=== PATIENT | male | born 1945 | race Caucasian/White ===

== ENCOUNTER 2024-08-03 10:44 | Emergency (ER) | payer MEDICARE, SELFPAY ==
[2024-08-03 10:47] VITALS: BP 126/69; PULSE 67; RESP 18; TEMP 37; O2SAT 96; BMI 26.4
--- NOTE | 2024-08-03 10:59 | ED.GENADULT ---
HPI - General Adult General Time Seen by Provider: 10:59 Date Seen: 08/03/24 Chief complaint: Skin/Abscess/Foreign Body Stated complaint: Rash Time Seen by Provider: 08/03/24 10:45 Source: patient and RN notes reviewed Mode of arrival: ambulatory Limitations: no limitations History of Present Illness HPI narrative: This 78-year-old male is coming in with a rash that seems to be spreading. He noticed it on Saturday, he was up into lose visiting relatives. He did walk back on a trail to wear bees were being kept. He does not recollect being stung by any insects or coming in contact with any plants. He believes he was wearing a long sleeve shirt. Rash was noticed on Saturday. We discussed the possibility of contact prior to that time since he started noticing the rash on Saturday. It started on his right inner arm, there is a bit on the juxtaposed right chest wall, has a few lesions on his legs and couple spots on both forearms. He has been using Claritin daily, has helped with the itching. He has had a remote history of poison valentine but absolutely nothing recent, does not believe he came in contact with any plants at the time. He has not noted any fevers. Rash is not really painful. He is not on any chronic medications. Related Data Previous Rx's ?Medication ?Instructions ?Recorded hydrocortisone 2.5 % topical cream 1 applic topical TID PRN 7 days 08/03/24 #30 grams prednisone 20 mg tablet 20 mg PO BID #10 tabs 08/03/24 Allergies Allergy/AdvReac Type Severity Reaction Status Date / Time No Known Drug Allergies Allergy Verified 08/03/24 10:55 Review of Systems Narrative: As per HPI. Exam Const: Vital Signs, click to edit/add: Vital Signs - 24 hr 08/03/24 10:47 Temperature 98.6 F Pulse Rate [Left P ulse Oximeter] 67 Respiratory Rate 18 Blood Pressure [Le ft Upper Arm] 126/69 Pulse Oximetry 96 Oxygen Delivery Me thod Room Air 78-year-old male is alert, interactive, no apparent distress. Appears very healthy. Skin has mild griffin nature, he has no facial rash, sclera clear, extraocular muscles intact, able to speak in complete sentences. On his right inner upper forearm with a little extension down laterally there is a plaque of baseline erythema with some thickening of the skin and areas of blistering, looks to be more of a contact dermatitis. Juxtaposed on his right chest wall is an area of erythema. On his forearms he has some smaller spots of erythema with some areas having little vesicular nature. He has a few spots on his lower legs and medial thighs. CV regular rate and rhythm, no murmur. Breathing easily on room air, lungs are clear, no tachypnea. Documenting provider has reviewed patient's vital signs: yes Course Vital Signs Vital signs: Initial Vital Signs Temperature 98.6 F 08/03/24 10:47 Temperature Source Temporal Artery Scan 08/03/24 10:47 Pulse Rate 67 08/03/24 10:47 Pulse Rhythm Regular 08/03/24 10:47 Respiratory Rate 18 08/03/24 10:47 Blood Pressure 126/69 08/03/24 10:47 Blood Pressure Mean 88 08/03/24 10:47 Blood Pressure Position Sitting 08/03/24 10:47 Pulse Oximetry 96 08/03/24 10:47 Oxygen Delivery Method Room Air 08/03/24 10:47 Vital Signs Temperature 98.6 F 08/03/24 10:47 Pulse Rate 67 08/03/24 10:47 Respiratory Rate 18 08/03/24 10:47 Blood Pressure 126/69 08/03/24 10:47 Pulse Oximetry 96 08/03/24 10:47 Oxygen Delivery Method Room Air 08/03/24 10:47 Temperature 98.6 F 08/03/24 10:47 Pulse Rate 67 08/03/24 10:47 Respiratory Rate 18 08/03/24 10:47 Blood Pressure 126/69 08/03/24 10:47 Pulse Oximetry 96 08/03/24 10:47 Oxygen Delivery Method Room Air 08/03/24 10:47 Medical Decision Making MDM Narrative Medical decision making narrative: Reviewed with patient that this really has appearance of a contact dermatitis. Given the distribution, this would not likely be a shingles rash, would anticipate if this patient had disseminated shingles he would definitely be ill and he clinically is not. This rash really supports a contact dermatitis. He is not aware of coming in contact with anything like poison valentine, poison oak or while pr snap. We did discuss that susceptible patient's really do not require a significant bolus of contact with the chemicals from these plants. It is possible that he could have had this happened while he was outside into loose on Saturday or perhaps at a different boy ate prior to that. We will try steroids, he can continue with Claritin twice a day to control the itching as needed. He stated the bottle reports that he can take it once a day, reviewed with him under medical treatment, we often will have patient's take it twice a day if needed. Critical Care Time Critical Care Time Critical Care Time: No Discharge Plan Discharge Clinical Impression: Rash Patient Disposition: Home, Self-Care Condition: Stable Instructions: Contact Dermatitis (ED) Additional Instructions: This rash clinically appears to be a contact dermatitis. We will have you try topical and oral steroids. Recommend taking prednisone with food to help protect your stomach. If the rash is not improving over the next week, worsens during the treatment or if it comes back after treatment, will need to be re-evaluated in may need to see Dermatology. Can continue to take the Claritin once to twice a day as needed to control itching. Activity Level: Activity as Tolerated Prescriptions: New prednisone 20 mg tablet 20 mg PO BID Qty: 10 0RF hydrocortisone 2.5 % cream 1 applic topical TID PRN7 Days Qty: 30 0RF Stand Alone Forms: [employer] Info Instructions
--- OUTSIDE RECORDS SUMMARY | 2024-08-03 11:24 | XMS_ITS | Referral Summary ---
Author Organization [place] Address [address] [place] [address] Care Team Providers Care Salesperson [employer] Furnishings Name Role Phone Anthony Garnica MD Primary Care Provider [phone] [facility], [place] [facility] Unavailable [phone] Allergies Active Allergy Reactions Criticality Noted Date Comments Amiodarone Other (See Comments) 06/05/2016 Photosensitivity, low appetite, didn't feel Warfarin Swelling 03/13/2023 Medications Medication Sig Dispensed Refills Start Date End Date Status STATIN NOT PRESCRIBED (INTENTIONAL) Please choose reason not prescribed from choices below. Active STATIN NOT PRESCRIBED (INTENTIONAL) Please choose reason not prescribed from choices below. 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 Pure hypercholesterolemia 08/15/2017 Resolved Problems Problem Noted Date Diagnosed Date Resolved Date Primary osteoarthritis of right hip 05/31/2022 07/05/2022 [facility] 05/14/2022 05/18/2024 Lumbago 06/20/2018 08/27/2018 Hip pain, right 06/20/2018 07/05/2022 Cardiomyopathy 04/20/2015 04/20/2021 Persistent atrial fibrillation 12/21/2014 04/20/2021 Immunizations Name Administration Dates Next Due DT (PEDS <7y) 02/15/1983 TD,PF 7+ (Tenivac) 12/02/1996 TDAP Vaccine (Adacel) 07/21/2019,10/23/2017,12/2006 Td (Adult), Adsorbed 09/02/2007 Social History Tobacco Use Types Packs/Day Years Used Date Smoking Tobacco: Never Smokeless Tobacco: Never Alcohol Use Standard Drinks/Week Comments Yes 4 (1 standard drink = 0.6 oz pur e alcohol) Social Connection and Isolat ion Panel [NHANES] Answer Date Recorded In a typical week, how many times do you talk on the phone with family, friends, or neighbors? Three times a week 01/31/2022 How often do you get togethe r with friends or relatives? More than three times a week 01/31/2022 How often do you attend [facility] or sabianist services? More than 4 times per year 01/31/2022 Do you belong to any clubs o r organizations such as oriental orthodox groups, unions, fraternal or athletic groups, or school groups? Yes 01/31/2022 Attends Club or Organization Meetings Not on channing e 01/31/2022 Are you , , di vorced, , never , or living with a partner? 01/31/2022 AUDIT-C Answer Date Recorded Q1: How often do you have a drink containing alc ohol? 2-3 times a week 01/31/2022 Q2: How many drinks containi ng alcohol do you have on a typical day when you are drinking? 1 or 2 01/31/2022 Q3: How often do you have si x or more drinks on one occasion? Never 01/31/2022 Overall Financial Resource Strain (CARDIA) Answe r Date Recorded How hard is it for you to pa y for the very basics like food, housing, medical care, and heating? Not hard at all 01/31/2022 PHQ-2 Answer Date Recorded PHQ-2 Score 0 01/24/2024 [facility] - Occupational Stress Questionnaire Answer Date Recorded Do you feel stress - tense, restless, nervous, or anxious, or unable to sleep at night because your mind is troubled all the time - these days? Not at all 01/31/2022 Exercise Vital Sign Answer Date Recorde d On average, how many days pe r week do you engage in moderate to strenuous exercise (like a brisk walk)? 4 days 01/31/2022 On average, how many minutes do you engage in exercise at this level? 20 min 01/31/2022 Hunger Vital Sign Answer Date Recorded Within the past 12 months, y ou worried that your food would run out before you got the money to buy more. Never true 02/01/20 22 Within the past 12 months, t he food you bought just didn't last and you didn't have money to get more. Never true 01/31/2022 PRAPARE - Transportation Answer Date Re corded In the past 12 months, has l ack of transportation kept you from medical appointments or from getting medications? No 01/2022 In the past 12 months, has l ack of transportation kept you from meetings, work, or from getting things needed for daily living? No 01/31/2022 Housing Stability Vital Sign Answer Emmanuel e Recorded In the last 12 months, was t here a time when you were not able to pay the mortgage or rent on time? No 01/31/2022 In the last 12 months, how many places have you lived? 1 01/31/2022 In the last 12 months, was t here a time when you did not have a steady place to sleep or slept in a jail (including now)? No 01/31/2022 Adolescent Education Answer Date Record ed Getting School Help Needed Not on file 09/07 Sex and Gender Information Value Date Recorded Sex Assigned at Not on file Gender Identity Not on file Sexual Orientation Not on file Last Filed Vital Signs Vital Sign Reading Time Taken Comments Blood Pressure 110/72 01/24/2024 11:17 AM FRAME BENDER Pulse 65 01/24/2024 11:17 AM FRAME BENDER Temperature 36.7 ??C (98 ??F) 01/24/2024 11:17 AM FRAME BENDER Respiratory Rate 20 01/24/2024 11:17 AM FRAME BENDER Oxygen Saturation 98% 01/24/2024 11:17 AM FRAME BENDER Inhaled Oxygen Concentration - - Weight 90.7 kg (200 lb) 01/24/2024 11:17 AM FRAME BENDER Height 184.2 cm (6' 0.5) 01/24/2024 11:17 AM CS T Body Mass Index 26.75 01/24/2024 11:17 AM FRAME BENDER Plan of Treatment Not on file Procedures Procedure Name Priority Date/Time Associated Diagnosis Comments BASIC METABOLIC PANEL (BFP) Routine 01/24/2024 2:24 PM FRAME BENDER Diabetes mellitus screening LIPID PANEL (BFP) Routine 01/24/2024 2:2 3 PM FRAME BENDER Pure hypercholesterolemia COLOGUARD([employer]) Routine 03/28/2023 7:15 AM CDT Colon cancer screening HEPATITIS C SCREEN REFLEX TO HCV RNA QUANT AND GENOTYPE Routine 02/07/2021 6:08 PM FRAME BENDER Need for hepatitis C screening test FECAL COLORECTAL CANCER SCREEN FIT Routine 06/23/2018 9:00 AM CDT Special screening for malignant neoplasms, colon COLONOSCOPY Routine 03/08/2005 9:50 AM CDT from Last 3 Months or Most Recently Relevant to Health Maintenance Results * Basic Metabolic Panel (BFP) (01/24/2024 2:24 PM FRAME BENDER) Carbon Dioxide 30.8 20 - 32 mmol/L BFP INTERNAL Creatinine 0.97 0.60 - 1.30 mg/dL BFP INTERNAL Glucose 90 60 - 99 mg/dL BFP INTERNAL Sodium 142.0 135 - 146 mmol/L BFP INTERNAL Potassium 4.50 3.5 - 5.3 mmol/L BFP INTERNAL Chloride 104.5 98 - 110 mmol/L BFP INTERNAL Urea Nitrogen 13 7 - 25 mg/dL BFP INTERNAL Calcium 9.3 8.6 - 10.3 mg/dL BFP INTERNAL BUN/Creatinine Ratio 13.4 6 - 32 BFP INTERNAL Blood 01/24/2024 2:24 PM FRAME BENDER Anthony Garnica MD LAB - NON-BEAKER BLOOD LABS BFP INTERNAL * (ABNORMAL) Lipid Panel (BFP) (01/24/2024 2:23 PM FRAME BENDER) Cholesterol 248(A) 0 - 199 mg/dL BFP INTERNAL Triglycerides 161(A) 0 - 149 mg/dL BFP INTERNAL HDL Cholesterol 53 40 - 150 mg/dL BFP INTERNAL LDL Cholesterol Direct 163(A) 0 - 130 mg/dL BFP INTERNAL Cholesterol/HDL Ratio 5 0 - 5 BFP INTERNAL Blood 01/24/2024 2:23 PM FRAME BENDER Anthony Garnica MD LAB - NON-BEAKER BLOOD LABS BFP INTERNAL * COLOGUARD([employer]) (03/28/2023 7:15 AM CDT) COLOGUARD-ABSTRACT Negative Negative 2022 12:11 PM CDT [facility] (CLIA #:[id number]) Comment: NEGATIVE TEST RESULT. A negative Cologuard result indicates a low likelihood that a colorectal cancer (CRC) or advanced adenoma (adenomatous polyps with more advanced pre-malignant features) ??is present. The chance that a person with a negative Cologuard test has a colorectal cancer is less than 1 in 1500 (negative predictive value >99.9%) or has an ??advanced adenoma is less than ??5.3% (negative predictive value 94.7%). These data are based on a prospective cross-sectional study of 10,000 individuals at average risk for colorectal cancer who were screened with both Cologuard and colonoscopy. (Juanita Rogers al, N Engl J Med 2014;370(14):1286- 1297) The normal value (reference range) for this assay is negative. COLOGUARD RE-SCREENING RECOMMENDATION: Periodic colorectal cancer screening is an important part of preventive healthcare for asymptomatic individuals at average risk for colorectal cancer. ??Following a negative Cologuard result, the [place] Cancer Society and U.S. Multi-Society Task Force screening guidelines recommend a Cologuard re-screening interval of 3 years. References: [place] [employer] Society Guideline for Colorectal Cancer Screening: https://www.cancer.org/cancer/xtkmd-bletav-fnhsrn/vappzfnmx-vrbdkqbsa-cboovak/ac s-rec ommendations.html.; Ruslan PHILLIPS, Yuli CR, Jacquie OchoaK, Colorectal Cancer Screening: Recommendations for Physicians and Patients from the U.S. Multi-Society Task Force on Colorectal Cancer Screening , Am J Gastroenterology 2017; 112:8594-0499. TEST DESCRIPTION: Composite algorithmic analysis of stool DNA-biomarkers with hemoglobin immunoassay. ?? Quantitative values of individual biomarkers are not reportable and are not associated with individual biomarker result reference ranges. Cologuard is intended for colorectal cancer screening of adults of either sex, 45 years or older, who are at average-risk for colorectal cancer (CRC). Cologuard has been approved for use by the U.S. FDA. The performance of Cologuard was established in a cross sectional study of average-risk adults aged 50-84. Cologuard performance in patients ages 45 to 49 years was estimated by sub-group analysis of near-age groups. Colonoscopies performed for a positive result may find as the most clinically significant lesion: colorectal cancer [4.0%], advanced adenoma (including sessile serrated polyps greater than or equal to 1cm diameter) [20%] or non- advanced adenoma [31%]; or no colorectal neoplasia [45%]. These estimates are derived from a prospective cross-sectional screening study of 10,000 individuals at average risk for colorectal cancer who were screened with both Cologuard and colonoscopy. (Juanita Rogers al, N Engl J Med 2014;370(14):1992-3308.) Cologuard may produce a false negative or false positive result (no colorectal cancer or precancerous polyp present at colonoscopy follow up). A negative Cologuard test result does not guarantee the absence of CRC or advanced adenoma (pre-cancer). The current Cologuard screening interval is every 3 years. ([place] Cancer Society and U.S. Multi-Society Task Force). Cologuard performance data in a 10,000 patient pivotal study using colonoscopy as the reference method can be accessed at the following location: www.[employer]/results. Additional description of the Cologuard test process, warnings and precautions can be found at www.[employer]. Stool specimen (specimen) 03/28/2023 7:15 AM CDT 03/29/2023 3:12 PM CDT Anthony Garnica MD LABORATORY [facility] [address] [place] [id number], [facility] [phone] [facility] (CLIA #:[id number]) [address] [place] [address] * Hepatitis C Screen Reflex to HCV RNA Quant and Genotype (02/07/2021 6:08 PM FRAME BENDER) Hepatitis C Antibody Nonreactive NR^Nonre active 02/08/2021 5:06 PM FRAME BENDER [facility] Comment: Assay performance characteristics have not been established for newborns, infants, and children Blood specimen (specimen) 02/07/2021 6:08 PM FRAME BENDER 02/07/2021 6:20 PM FRAME BENDER Dustin Gong MD LAB - BLOOD ORD ERABLES Performing Organization Address City/[facility]/ZIP Co de Phone Number [address] [address] * Fecal colorectal cancer screen (FIT) (06/23/2018 9:00 AM CDT) Pathologist [facility] Occult Blood Scn FIT Negative NEG^Negati ve 06/25/2018 1:35 PM CDT [facility] Stool specimen (specimen) 06/23/2018 9:00 AM CDT 06/25/2018 8:04 AM CDT Dustin Gong MD LAB - STOOLS OR DERABLES [address] [address] * COLONOSCOPY (03/08/2005 9:50 AM CDT) COLONOSCOPY [facility] Patient Name: Lorn Manthey ?Gender: M Exam Date: ?03/08/2005 09:50 AM Procedure: ? Colonoscopy Indications: ? Screening for polyps in the colon Providers: ? Darvin Lau MD Referring MD: ?Vipul Miller MD Medicines: ? Fentanyl 100 mcg IV, Midazolam 2 mg IV, Atropine 0.6 mg IV Complications: ?? No immediate complications Procedure: ? A History and Physical has been performed, and patient ? medication allergies have been reviewed. The patient's ? tolerance of previous anesthesia has been reviewed. The ? risks and benefits of the procedure and the sedation options ? and risks were discussed with the patient. All questions ? were answered and informed consent was obtained. Mental ? Status Examination: normal. Airway Examination: normal ? oropharyngeal airway and neck mobility. Respiratory ? Examination: clear to auscultation. CV Examination: normal. ? ASA Grade Assessment: P1 A normal healthy patient. After ? reviewing the risks and benefits, the patient was deemed in ? satisfactory condition to undergo the procedure. The ? anesthesia plan was to use conscious sedation. Immediately ? prior to administration of medications, the patient was ? re-assessed for adequacy to receive sedatives. The heart ? rate, respiratory rate, oxygen saturations, blood pressure, ? adequacy of pulmonary ventilation, and response to care were ? monitored throughout the procedure. The physical status of ? the patient was re-assessed after the procedure. ? After obtaining informed consent, the colonoscope was passed ? under direct vision. Throughout the procedure, the patient's ? blood pressure, pulse, and oxygen saturations were monitored ? continuously. The Colonoscope P-56 #[id number] was introduced ? through the anus and advanced to the ileum. The colonoscopy ? was accomplished without difficulty. The patient tolerated ? the procedure well. The quality of the prep was excellent. Findings: ?The digital rectal exam was normal. The rectum, sigmoid ? colon, descending colon, splenic flexure, transverse colon, ? hepatic flexure, ascending colon, cecum, ileocecal valve and ? ileum were normal. The retroflexed view of the anal verge ? was normal and showed no anal or rectal abnormalities. The ? terminal ileum was normal. Impression: ?- The rectum, sigmoid colon, descending colon, splenic ? flexure, transverse colon, hepatic flexure, ascending colon, ? cecum, ileocecal valve and terminal ileum are normal. ? - The terminal ileum is normal. Recommend: ? - The patient was discharged to home (ambulatory). ? - Collect hemoccults on three spontaneously passed stools ? annually. ? - Flexible Sigmoidoscopy in 3 years. ? - Return to primary care physician PRN. Surinder Lau M.D Darvin Lau MD Signed Date: 03/08/2005 10:15:20 AM I was physically present for the entire viewing portion of the exam. Note generated on 03/08/2005 9:50:32 AM RADIOLOGY RESULTS COLONOSCOPY RADIOLOG Y RESULTS 03/08/2005 9:50 AM CDT Darvin Lau MD PROCEDURES RADIOLOGY RESULTS from Last 3 Months or Most Recently Relevant to Health Maintenance Care Teams Salesperson [employer] Relationship Specialty Start Date End Date Anthony Garnica MD [address] [place], [place] [id number] PCP - General Family Medicine 05/11/22 Physicians, [place] [address] [place] [address] Assigned PCP 12/26/23
--- OUTSIDE RECORDS SUMMARY | 2024-08-03 11:24 | XMS_ITS | Encounter Summary ---
Author Organization [place] Address [address] [place] [address] Care Team Providers Care Appeals Specialist Name Role Phone Dustin Gong MD Primary Care Provider Unavailable Dustin Gong MD Unavailable Lion Sol MD Unavailable [phone] Anthony Garnica MD Primary Care Provider [phone] [facility] Unavailable [phone] Reason for Visit * Reason Onset Date Comments Outreach 10/21/2020 [facility] - ATT 1 Encounter Details Date Type Department Care Team (Late st Contact Info) Description 10/21/[address] [address] Dustin Gong MD Outreach ([facility] - ATT 1) Social History Tobacco Use Types Packs/Day Years Used Date Smoking Tobacco: Never Smokeless Tobacco: Never Alcohol Use Standard Drinks/Week Comments Yes 0 (1 standard drink = 0.6 oz pur e alcohol) PHQ-2 Answer Date Recorded PHQ-2 Score 0 12/09/2018 Sex and Gender Information Value Date Recorded Sex Assigned at Not on file Gender Identity Not on file Sexual Orientation Not on file documented as of this encounter Miscellaneous Notes * Telephone Encounter - Juan C Reed - 10/21/2020 8:13 AM CST 10/21/2020 Call Regarding ReattributionPhysical Attempt 1 Message on voicemail Comments: [facility] Outreach Pull Out Operator [employer] EXAMINER documented in this encounter Plan of Treatment Not on file documented as of this encounter Visit Diagnoses Not on filedocumented in this encounter Care Teams Appeals Specialist Relationship Specialty Start Date End Date Dustin Gong MD PCP - General Family Practice 11/26/17 05/10/22 Anthony Garnica MD [address] [place] [address] PCP - General [facility] 05/11/22 Dustin Gong MD Assigned PCP 10/31/17 03/03/22 Lion Flood MD [address] [facility] [address] [place] [address] Assigned Surgical Provider 09/23/20 03/25/21 Physicians, [address] [place] [address] Assigned PCP 12/26/23 documented as of this encounter
--- OUTSIDE RECORDS SUMMARY | 2024-08-03 11:24 | XMS_ITS | Clinical Summary ---
Author Organization [employer] [facility] Address [place], [place] [address] Care Team Providers Care Postulant Name Role Phone Srikanth García MD Unavailable Patrica Valdovinos NP Unavailable [phone] Regino Ferreira - Primary Care Provider Unavailabl e Allergies Active Allergy Reactions Criticality Noted Date Comments Amiodarone Other - Describe In Comment Field 06/05/2016 Photosensitivity, low appetite, didn't feel Wine Spirit Other - Describe In Comment Field 02/09/2015 Red and white reagan -- congestion Medications Medication Sig Dispensed Refills Start Date End Date Status aspirin (ECOTRIN) 81 mg enteric coated tabletIndications:PAF (paroxysmal atrial fibrillation) (HC) Take 1 tablet by mouth once daily with a meal. 90 tablet 08/15/2017 Active rosuvastatin (CRESTOR) 5 mg tabletIndications:Pure hypercholesterolemia Take half a tablet (2.5mg) once weekly. If tolerating after two weeks then increase to half a tablet (2.5mg) twice weekly. 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; resolved 04/20/2015 Anticoagulation goal of INR 2 to 3 12/24/2014 Atrial fibrillation 12/21/2014 Other and unspecified hyperlipidemia 05/29/2010 Routine health maintenance 05/29/2010 Overview: Last cpx-09/07 Last lipid-09/07,LDL-148 Last colonoscopy-03/06 Immunizations Name Administration Dates Next Due DT (Age < 7 years) 02/15/1983 Td (Age >=7 Years) 09/02/2007,12/02/1996 Tdap 10/23/2017,09/01/2007 Family History Medical History Relation Name Comments Cancer Father nhl Cancer-breast Mother mom 87 Diabetes Sister type 1 Relation Name Status Comments Father Mother Sister Social History Tobacco Use Types Packs/Day Years Used Date Smoking Tobacco: Former Cigars Q uit: 10/02/2013 Smokeless Tobacco: Never Alcohol Use Standard Drinks/Week Comments Yes 2 (1 standard drink = 0.6 oz pure alcohol) 3 days per week/ 1 beer per day Social Connections Answer Date Recorded Frequency of Communication with Friends and Fami ly Not on file 03/25/2022 Sex and Gender Information Value Date Recorded Sex Assigned at Not on file Gender Identity Not on file Sexual Orientation Not on file Obstetrics History Last Filed Vital Signs Vital Sign Reading Time Taken Comments Blood Pressure 132/70 06/19/2022 8:26 AM CDT Pulse 63 06/19/2022 8:26 AM CDT Temperature 36.3 ??C (97.3 ??F) 06/19/2022 8:26 AM CD T Respiratory Rate 20 06/19/2022 8:26 AM CDT Oxygen Saturation 98% 06/19/2022 8:26 AM CDT Inhaled Oxygen Concentration - - Weight 92.1 kg (203 lb) 06/19/2022 8:26 AM CDT Height 185.4 cm (6' 1) 06/19/2022 8:26 AM CDT Body Mass Index 26.78 06/19/2022 8:26 AM CDT Plan of Treatment Health Maintenance Due Date Last Done Comments Depression screening for age 12+ 1959 Hepatitis C screening for ag e 18-79 1965 Zoster (shingles) series for age 50+ (1 of 2) 1997 Pneumococcal series for age 65+ (1 of 1 - PCV) 2012 Medicare Wellness for age 65+ 12/22/2015 12/21/2014 BMI (ht and wt on same day) for age 18+ 06/19/2023 06/19/2022, 10/14/2018, 08/15/2017, Additional history exists COVID-19 vaccine series (2022- season) 2023 Influenza for age 65+ 08/02/2024 Tetanus booster 10/23/2027 10/23/2017, 01/2007, 09/01/2007, Additional history exists Tdap Completed 10/23/2017, 09/01/2007 Advance Directives * Full Code (Latest Code Status on File) Date Activated Date Inactivated Comments 12/11/2016 9:47 AM 12/11/2016 6:16 PM * Full Code Date Activated Date Inactivated Comments 10/31/2016 6:05 AM 11/01/2016 1:15 PM * Full Code Date Activated Date Inactivated Comments 03/16/2015 8:26 AM 03/17/2015 2:31 AM Care Teams Postulant Relationship Specialty Start Date End Date Regino Ferreira - PCP - General 09/04/18 Srikanth García MD [address] [place] [address] Cardiology - EP Cardiovascular Disease 08/15/17 Patrica Valdovinos NP [address] [place] [address] Nurse Practitioner Cardiovascular Disease 08/15/17
--- OUTSIDE RECORDS SUMMARY | 2024-08-03 11:24 | XMS_ITS | Clinical Summary ---
Author Organization [facility] Address [address] [place] [id number] Care Team Providers Care Photographic Developer And Printer Name Role Phone Anthony Garnica MD Primary Care Provider [phone] [facility] Unavailable [phone] Allergies Active Allergy Reactions Criticality Noted Date [...] osteoarthritis of right hip 05/31/2022 07/05/2022 Health Skilled Nursing 05/14/2022 05/18/2024 Lumbago 06/20/2018 08/27/2018 Hip pain, right 06/20/2018 07/05/2022 Cardiomyopathy 04/20/2015 04/20/2021 Persistent atrial fibrillation 12/21/2014 04/20/2021 Immunizations Name Administration Dates Next Due DT (PEDS <7y) 02/15/1983 TD,PF 7+ (Tenivac) 12/02/1996 TDAP Vaccine (Adacel) 07/21/2019,10/23/2017,12/2006 Td (Adult), Adsorbed 09/02/2007 Family History Medical History Relation Comments Atrial fibrillation Father Lymphoma Father Breast Cancer Mother Cancer Mother gynecologic, met astatic Alzheimer Disease Other pat uncle Alzheimer Disease Paternal Grandfather Diabetes Sister type 1 Cerebrovascular Disease No family hx of Colon Cancer No family hx of Coronary Artery Disease No family hx of Prostate Cancer No family hx of Relation Status Comments Father Mother Other Paternal Grandfather Sister Alive Social History Tobacco Use Types Packs/Day Years [...] week 01/31/2022 How often do you attend [facility] or hoahaoism services? More than 4 times per year 01/31/2022 Do you belong to any clubs o r organizations such as yazidism groups, unions, fraternal or athletic groups, or [...] Answer Date Recorded PHQ-2 Score 0 01/24/2024 [facility] - Occupational [...] place to sleep or slept in a skilled nursing (including now)? No 01/31/2022 Adolescent Education Answer Date Record ed Getting School Help Needed Not on file 09/07 Sex and Gender Information Value Date Recorded Sex Assigned at Not on file Gender Identity Not on file Sexual Orientation Not on file Last Filed Vital Signs Vital Sign Reading Time Taken Comments Blood Pressure 110/72 01/24/2024 11:17 AM [facility] Pulse 65 01/24/2024 11:17 AM [facility] Temperature 36.7 ??C (98 ??F) 01/24/2024 11:17 AM [facility] Respiratory Rate 20 01/24/2024 11:17 AM [facility] Oxygen Saturation 98% 01/24/2024 11:17 AM [facility] Inhaled Oxygen Concentration - - Weight 90.7 kg (200 lb) 01/24/2024 11:17 AM [facility] Height 184.2 cm (6' 0.5) 01/24/2024 11:17 AM CS T Body Mass Index 26.75 01/24/2024 11:17 AM [facility] Plan of Treatment Health Maintenance Due Date Last Done Comments ANNUAL REVIEW OF HM ORDERS 01/31/2023 01/31/2022, FALL RISK ASSESSMENT 03/13/2024 03/13/2023, 01/31/2022, 02/07/2021, Additional history exists INFLUENZA VACCINE (#1) 2024 COVID-19 Vaccine ( season) 2025 Postponed from 08/02/2023 (Patient Declined) LIPID 01/24/2025 01/24/2024, 03/02, 02/07/2021, Additional history exists MEDICARE ANNUAL WELLNESS VISIT 01/24/2025 01/24/2024, 03/13/2023, 03/13/2023, Additional history exists Pneumococcal Vaccine: 65+ Years (1 of 2 - PCV) 01/24/2025 Postponed from 1953 (Patient Declined) RSV VACCINE (1 - 1-dose 60+ series) 01/24/2025 Postponed from 2007 (Patient Declined) ZOSTER IMMUNIZATION (1 of 2) 05/14/2025 Postponed from 1997 (Insurance Coverage) GLUCOSE 01/24/2027 01/24/2024, 03/02, 02/08/2022, Additional history exists ADVANCE CARE PLANNING 05/14/2027 05/14/2022 , 05/14/2022, 01/31/2022, Additional history exists DTAP/TDAP/TD IMMUNIZATION (5 - Td or Tdap) 07/21/2029 07/21/2019, 10/23/2017, 09/02/2007, Additional history exists COLONOSCOPY Discontinued 03/08/2005 FIT Discontinued 06/23/2018 HEPATITIS C SCREENING Completed 02/07/2021 COLORECTAL CANCER SCREENING Discontinued sDNA (Cologuard) Discontinued 03/28/2023, 03/28/2023 PHQ-2 (once per calendar year) Completed 01/24/2024, 03/13/2023, 01/31/2022, Additional history exists CT COLONOGRAPHY Discontinued FLEX SIG Discontinued HPV IMMUNIZATION Aged Out No longer e ligible based on patient's age to complete this topic MENINGITIS IMMUNIZATION Aged Out No l onger eligible based on patient's age to complete this topic RSV MONOCLONAL ANTIBODY Aged Out No l onger eligible based on patient's age to complete this topic Procedures Procedure Name Priority Date/Time Associated Diagnosis Comments BASIC METABOLIC PANEL (BFP) Routine 01/24/2024 2:24 PM [facility] Diabetes mellitus screening LIPID PANEL (BFP) Routine 01/24/2024 2:2 3 PM [facility] Pure hypercholesterolemia COLOGUARD([employer]) Routine 03/28/2023 7:15 AM CDT Colon cancer screening HEPATITIS C SCREEN REFLEX TO HCV RNA QUANT AND GENOTYPE Routine 02/07/2021 6:08 PM [facility] Need for hepatitis C screening test FECAL COLORECTAL CANCER SCREEN FIT Routine 06/23/2018 9:00 AM CDT Special screening for malignant neoplasms, colon COLONOSCOPY Routine 03/08/2005 9:50 AM CDT from Last 3 Months or Most Recently Relevant to Health Maintenance Results * Basic Metabolic Panel (BFP) (01/24/2024 2:24 PM [facility]) Carbon Dioxide 30.8 20 - 32 mmol/L [...] 32 BFP INTERNAL Blood 01/24/2024 2:24 PM [facility] Anthony Garnica MD LAB - NON-BEAKER BLOOD LABS BFP INTERNAL * (ABNORMAL) Lipid Panel (BFP) (01/24/2024 2:23 PM [facility]) Cholesterol 248(A) 0 - 199 mg/dL BFP INTERNAL Triglycerides 161(A) 0 - 149 mg/dL BFP INTERNAL HDL Cholesterol 53 40 - 150 mg/dL BFP INTERNAL LDL Cholesterol Direct 163(A) 0 - 130 mg/dL BFP INTERNAL Cholesterol/HDL Ratio 5 0 - 5 BFP INTERNAL Blood 01/24/2024 2:23 PM [facility] Anthony Garnica MD LAB - NON-[facility] BLOOD LABS [facility] INTERNAL * COLOGUARD([employer]) (03/28/2023 7:15 AM CDT) COLOGUARD-ABSTRACT Negative Negative 2022 12:11 PM CDT [facility] (CLIA #:[id number]) Comment: NEGATIVE TEST RESULT. A negative Cologuard [...] cancer. ??Following a negative Cologuard result, the [employer] and U.S. Multi-Society Task Force screening guidelines recommend a Cologuard re-screening interval of 3 years. References: [place] [employer] Guideline for Colorectal Cancer Screening: https://www.cancer.org/cancer/mkzfk-korivu-qplmnh/ibhxasmxh-erxmmexvz-dctxpsu/ac s-rec ommendations.html.; Ruslan PHILLIPS, Yuli RIVERA, Jacquie GORE, Colorectal Cancer Screening: Recommendations for Physicians and Patients from the U.S. Multi-Society Task Force on Colorectal Cancer Screening , Am J Gastroenterology 2017; 112:7694-4187. TEST DESCRIPTION: Composite algorithmic analysis of stool [...] screened with both Cologuard and colonoscopy. (Juanita Tapia. et al, N Engl J Med 2014;370(14):7352-1263.) Cologuard may produce a false negative or false positive result (no colorectal cancer or precancerous polyp present at colonoscopy follow up). A negative Cologuard test result does not guarantee the absence of CRC or advanced adenoma (pre-cancer). The current Cologuard screening interval is every 3 years. ([employer] and U.S. Multi-Society Task Force). Cologuard performance data in a 10,000 patient pivotal study using colonoscopy as the reference method can be accessed at the following location: www.BIOSAFE/results. Additional description of the Cologuard test process, warnings and precautions can be found at www.cologuard.com. Stool specimen (specimen) 03/28/2023 7:15 AM CDT 03/29/2023 3:12 PM CDT Anthony Garnica MD LABORATORY Performing Organization Address City/[facility]/ZIP Co de Phone Number [facility] [address] [place] [address], [facility] [phone] [employer] (CLIA #:[id number]) [address] [place] [address] * Hepatitis C Screen Reflex to HCV RNA Quant and Genotype (02/07/2021 6:08 PM [facility]) Pathologist [facility] [place] Hepatitis C Antibody Nonreactive NR^Nonre active 02/08/2021 5:06 PM [facility] Comment: Assay performance characteristics have not been established for newborns, infants, and children Blood specimen (specimen) 02/07/2021 6:08 PM [facility] 02/07/2021 6:20 PM [facility] Dustin Gong MD LAB - BLOOD ORD ERABLES Performing Organization Address City/[facility]/ZIP Co de Phone Number [address] [address] * Fecal colorectal cancer screen (FIT) (06/23/2018 9:00 AM CDT) Pathologist [facility] [place] Occult Blood Scn FIT Negative NEG^Negati ve 06/25/2018 1:35 PM CDT [facility] Stool specimen (specimen) 06/23/2018 9:00 AM CDT 06/25/2018 8:04 AM CDT Dustin Gong MD LAB - STOOLS OR DERABLES [facility] [address] [place] [address] * COLONOSCOPY (03/08/2005 9:50 AM CDT) COLONOSCOPY [facility] Patient Name: Marcos Martinez ?Gender: M Exam Date: ?03/08/2005 09:50 AM [...] were monitored ? continuously. The Colonoscope [id number] #[id number] was introduced ? through the anus and [...] Recently Relevant to Health Maintenance Care Teams Photographic Developer And Printer Relationship Specialty Start Date End Date Anthony Garnica MD [address] [place] [address] PCP - General Family Medicine 05/11/22 [facility] Renee [facility] [address] [place] [id number] Assigned PCP 12/26/23
--- NOTE | 2024-08-03 11:32 | ED.NURSE ---
Prescription cancelled at [facility]
== END 2024-08-03 11:30 | disposition home or self-care (01) ==
LOC: ED 11:23
PROVIDERS: Emergency Provider Family Medicine
DX: R21 Rash and other nonspecific skin eruption (principal)
CPT/HCPCS: 99283